=== PATIENT | male | born 1950 | race Caucasian/White ===

== ENCOUNTER 2019-05-31 15:07 | Emergency (ER) | payer OTHER, MEDICAID ==
[~2019-05-31] VITALS: Ht 175.3 cm; Wt 113.0 kg
[~2019-05-31 15:07] MED LIST: BENA40TA9 PO; INSU100I3 SQ; INSU3INS6 SQ; OMEP20CA14 PO; PRAV10TA35 PO
[2019-05-31 15:17] VITALS: BP 155/83
== END 2019-05-31 16:26 | disposition left against medical advice (07) ==
LOC: ER 15:07
DX: Z53.21 Procedure and treatment not carried out due to patient leaving prior to being seen by health care provider (principal)